=== PATIENT | female | born 1990 | race African-American/Black ===

== ENCOUNTER 2021-02-17 20:28 | Emergency (ER) | payer MEDICAID ==
[~2021-02-17] VITALS: Ht 167.6 cm; Wt 79.0 kg
[2021-02-17] MEDS ORDERED: IBUPROFEN 600MG TABLET PO SCH (23:00)
[2021-02-17] MEDS ORDERED: CEFTRIAXONE SODIUM 500 MG/VIAL IM ONE (23:00)
[2021-02-17] MEDS ORDERED: DOXYCYCLINE HYCLATE 100MG CAPSULE PO ONE (23:00)
[2021-02-17] MEDS ORDERED: CYCL5TAB MT (23:16)
[2021-02-17] MEDS ORDERED: IBUP-2029 MT (23:16)
[2021-02-17 23:30] VITALS: BP 130/79
== END 2021-02-18 | disposition home or self-care (01) ==
LOC: ER 20:28
DX: S59.901A Unspecified injury of right elbow, initial encounter (principal); M79.662 Pain in left lower leg; F12.10 Cannabis abuse, uncomplicated; V49.40XA Driver injured in collision with unspecified motor vehicles in traffic accident, initial encounter; Y93.89 Activity, other specified; Y92.89 Other specified places as the place of occurrence of the external cause; Y99.8 Other external cause status
CPT/HCPCS: 73080; 99283